=== PATIENT | male | born 1935 | race Caucasian/White ===

== ENCOUNTER → 2017-02-04 | Outpatient (CLI) | payer OTHER ==
[~2017-02-04] MED LIST: /ESOM40CA; ALPHAGAN; DIOV320T; SIMV10TA2; TRAM50TA2; TRIC145T19; XALATAN
--- NOTE | 2017-02-05 03:20 | REP ---
Clinical: Shoulder pain. Status post fall. Technique: Internal rotation, external rotation, and Y view of the right shoulder. Findings: Age-related osteopenia and moderate osteoarthritic degenerative changes at the acromioclavicular and glenohumeral joints are appreciated. Findings include spurring/osteophyte formation along the inferior margin of the AC joint and glenoid rim. No obvious acute fracture or dislocation. Subacromial space is normal. No periarticular calcifications appreciated. Impression: Age-related osteopenia and moderate osteoarthritic degenerative changes. No obvious acute fracture or dislocation. Signed by Cale Conley MD 02/05/2017 03:12 A
== END ==
LOC: M RAD 11:26
PROVIDERS: ATTEND Nurse Practitioner Family
DX: M81.0 Age-related osteoporosis without current pathological fracture (principal); M19.011 Primary osteoarthritis, right shoulder

== ENCOUNTER → 2018-10-28 | Outpatient (CLI) | payer MEDICARE ==
--- NOTE | 2018-10-28 20:52 | REP ---
Clinical: Left elbow pain. Technique: AP, lateral, bilateral oblique views of the left elbow. Findings: Extensive destructive changes involving the distal humerus, and proximal radius and ulna are appreciated with architectural distortion and heterotopic ossification. Findings may be related to old injury as well as prior infection. Calcifications likely extending into the joint space involve the synovium. 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 Electronically Signed by Cale Conley MD 10/28/2018 08:44 P
== END ==
LOC: M RAD 12:58
PROVIDERS: ATTEND Nurse Practitioner Adult Health
DX: M79.9 Soft tissue disorder, unspecified (principal)

== ENCOUNTER → 2019-05-05 | Outpatient (REF) | payer MEDICARE ==
[~2019-05-05] MED LIST changes: -/ESOM40CA; +NEXI1CAP3
== END ==
LOC: M LAB REF 12:11
PROVIDERS: ATTEND Nurse Practitioner Adult Health
DX: J02.9 Acute pharyngitis, unspecified (principal)

== ENCOUNTER → 2020-01-26 | Outpatient (CLI) | payer MEDICARE ==
--- NOTE | 2020-01-27 05:04 | REP ---
Clinical: Symptoms related to atherosclerotic disease and intermittent claudication along with edema. Technique: Real time mesa scale and color Doppler evaluation of the bilateral lower extremity arterial vasculature using linear high frequency transducer. Findings: Mesa scale and color images demonstrate moderate amounts of atheromatous plaquing bilaterally with scattered areas of narrowing. There is focal 3:1 stenosis of the right proximal anterior tibial artery. Doppler interrogation demonstrates bilateral triphasic and biphasic arterial wave forms. Peak systolic velocities (cm/sec) RIGHT LEFT Common femoral artery 85.0 76.0 Profunda femoris 80.0 57.0 SFA (proximal) 75.0 77.0 SFA (mid) 81.0 76.0 SFA (distal) 66.0 61.0 Popliteal artery 42.0 66.0 JULISA (prox.) 154.0 68.0 Tibioperoneal trunk 62.0 72.0 [employer] (prox.) 47.0 66.0 [employer] (distal) 69.0 36.0 JULISA (distal) 24.0 52.0 Impression: Diffuse moderate partially calcified atheromatous changes with areas of narrowing noted bilaterally including focal stenosis in the right proximal anterior tibial artery. Electronically Signed by Cale Conley MD 01/27/2020 04:56 A
== END ==
LOC: M RAD 06:40
PROVIDERS: ATTEND Physician Assistant
DX: M79.606 Pain in leg, unspecified (principal); R60.9 Edema, unspecified; I70.223 Atherosclerosis of native arteries of extremities with rest pain, bilateral legs

== ENCOUNTER → 2020-02-02 | Outpatient (CLI) | payer MEDICARE ==
--- NOTE | 2020-02-02 12:57 | REP ---
MRI lumbar spine: 02/02/2020. Indication: Low back pain. Technique: Multiplanar short and long TR sequences of the lumbar spine were obtained without IV Gadolinium. Comparison: 07/22/2005. Findings: Grade 1 anterolisthesis of L1 on L2 and L3 and L4 are present. There is reversal of the lumbar lordosis. Minimal retrolisthesis of L4 on L5 and L5 on S1 is noted. There is partial osseous fusion at L4/L5. Disc dessication is present throughout. There is considerable disc space narrowing throughout. L1/L2: Disc uncovering/bulge, osteophytic spurring most pronounced anteriorly, ligamental laxity and significant bilateral facet arthropathy are present with severe right greater than left recess narrowing. There is moderate bilateral neural foraminal narrowing. L2/L3: Disc osteophyte complex is present most pronounced anteriorly with significant bilateral facet arthropathy and ligamental laxity. Moderate to severe right and moderate left recess narrowing is present. Mild to moderate bilateral neural foraminal narrowing is present. L3/L4: Disc uncovering/bulge and disc and spur complex are present most pronounced anteriorly with significant bilateral facet arthropathy. Ligamental laxity is present as well. There is severe bilateral recess narrowing. Moderate bilateral neural foraminal narrowing is present. L4/L5: Disc osteophytes are present most pronounced anteriorly. There is significant facet arthropathy and ligamental laxity. Severe left greater than right recess narrowing is present. Moderate bilateral neural foraminal narrowing is present. L5/S1: Diffuse disc and spur complex, right greater than left facet arthropathy and ligamental laxity are present with moderate to severe right greater than left recess narrowing. Moderate to severe left and moderate right neural foraminal narrowing is present. Impression: Significant multilevel degenerative sequelae of the lumbar spine as described. Please correlate with radicular level. Electronically Signed by Marshal Coy DO 02/02/2020 12:47 P
== END ==
LOC: M RAD 08:23
PROVIDERS: ATTEND Physical Medicine & Rehabilitation
DX: M43.16 Spondylolisthesis, lumbar region (principal); M51.26 Other intervertebral disc displacement, lumbar region

== ENCOUNTER → 2020-05-02 | Outpatient (CLI) | payer MEDICARE | LOC: M LABSMTC 10:42 | PROVIDERS: ATTEND Physical Medicine & Rehabilitation | DX: Z11.59 Encounter for screening for other viral diseases (principal) ==

== ENCOUNTER → 2020-05-04 | Outpatient (REF) | payer MEDICARE ==
[2020-05-04 18:43] LABS: INR 1.15; PROTHROMBIN TIME 14.9 SECONDS (11.8-14.0)
[2020-05-04 18:44] LABS: PARTIAL THROMBOPLASTIN TIME 28.3 SECONDS (25.0-38.4)
== END ==
LOC: M LAB REF 16:57
PROVIDERS: ATTEND Nurse Practitioner Adult Health
DX: Z01.812 Encounter for preprocedural laboratory examination (principal)

== ENCOUNTER → 2020-05-13 | Outpatient (CLI) | payer MEDICARE | LOC: M LABSMTC 09:33 | PROVIDERS: ATTEND Physical Medicine & Rehabilitation | DX: Z20.828 Contact with and (suspected) exposure to other viral communicable diseases (principal) ==

== ENCOUNTER → 2021-02-22 | Outpatient (CLI) | payer MEDICARE ==
[2021-02-22 13:17] LABS: BLOOD UREA NITROGEN 21 MG/DL (7-18); CREATININE FOR GFR 0.69 MG/DL (0.70-1.30); GLOMERULAR FILTRATION RATE > 60.0 (>35)
== END ==
LOC: M LAB 12:22
PROVIDERS: ATTEND Orthopaedic Surgery
DX: M19.011 Primary osteoarthritis, right shoulder (principal)

== ENCOUNTER → 2021-03-01 | Outpatient (CLI) | payer MEDICARE ==
--- NOTE | 2021-03-01 16:48 | REP ---
INDICATION: OA RT SHOULDER, R/O LABRAL TEAR. COMPARISON: Radiographs 02/04/2017. TECHNIQUE: Coronal oblique T1, T2 fat sat, sagittal oblique T2 fat sat, axial T2 fat sat, gradient echo. T1 fat-sat imaging in multiple planes prior to and following the intravenous administration of 16 mL ProHance. FINDINGS: Rotator cuff: There is a full-thickness tear of the distal supraspinatus tendon, the gap in the tendon is 1.3 cm. There is a partial tear of the subscapularis tendon. Acromioclavicular joint: There are moderately severe hypertrophic degenerative changes of the acromioclavicular joint with mild fluid in the joint. Acromion: Type 1 Biceps Tendon: The proximal biceps tendon appears torn and retracted distally.. Hill Sach's deformity: None. Deltoid muscle: No abnormal signal. Biceps labral complex: The biceps tendon is not visualized inserting onto the labral anchor. Labrum: The inferior labrum is diffusely frayed and truncated. There tears of the anterior and posterior labrum. 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 Bone marrow: There is scattered marrow edema in the medial humeral head and in the glenoid. There is moderate spurring of the medial humeral head. Joint fluid: There is a large joint effusion. There is a large amount of fluid in the subdeltoid bursa. There is diffuse synovial thickening and enhancement. IMPRESSION: Full-thickness tear distal supraspinatus tendon. Partial tear subscapularis tendon. Moderately severe hypertrophic degenerative changes acromioclavicular joint. Proximal biceps tendon appears torn and retracted distally. There are tears of the anterior and posterior labrum. The inferior labrum is diffusely frayed and truncated. 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 Large joint effusion. Large amount of fluid in the subdeltoid bursa. Diffuse synovial thickening and enhancement. <Electronically signed by Eric Mesa > 03/01/21 1702
== END ==
LOC: M RAD 10:55
PROVIDERS: ATTEND Physician Assistant Surgical
DX: M19.011 Primary osteoarthritis, right shoulder (principal)

== ENCOUNTER 2021-08-21 20:20 | Emergency (ER) | payer MEDICARE ==
[~2021-08-21] VITALS: Ht 180.3 cm; Wt 81.8 kg
[2021-08-21 20:21] VITALS: BP 123/58
[2021-08-21] MEDS ORDERED: LISI20TA33 PO (20:29)
== END 2021-08-21 23:11 | disposition left against medical advice (07) ==
LOC: M ED 20:20
DX: Z53.29 Procedure and treatment not carried out because of patient's decision for other reasons (principal)

== ENCOUNTER → 2021-12-31 | Outpatient (CLI) | payer MEDICARE ==
[~2021-12-31] MED LIST changes: +LISI20TA33 PO
== END ==
LOC: M RAD 12:16
PROVIDERS: ATTEND Physician Assistant Medical
DX: R05.9 Cough, unspecified (principal)

== ENCOUNTER → 2022-07-21 | Outpatient (CLI) | payer MEDICARE ==
[~2022-07-21] MED LIST changes: +ECOT81TA5 PO; +SIMV20TA22 PO
== END ==
LOC: M LABSMTC 09:55
PROVIDERS: ATTEND Anesthesiology
DX: Z01.812 Encounter for preprocedural laboratory examination (principal); Z11.52 Encounter for screening for COVID-19

== ENCOUNTER → 2022-07-28 | Outpatient (CLI) | payer MEDICARE | LOC: M LABSMTC 10:23 | PROVIDERS: ATTEND Anesthesiology | DX: Z01.818 Encounter for other preprocedural examination (principal); Z11.52 Encounter for screening for COVID-19 ==

== ENCOUNTER 2022-07-31 08:15 | Day surgery (SDC) | payer MEDICARE ==
[~2022-07-31] VITALS: Ht 177.8 cm; Wt 78.5 kg
[~2022-07-31 08:15] MED LIST changes: +BSS IRRIG/VANCO(10MG)/TOBRA(5MG)/EPINEPH(1:1000-0.5CC)500ML BAG-ORONLY IR ONE; +CEFUROXIME 1MG/0.1ML INTRACAMERAL INJ As Ordered ONE; +CYCLOPENTOLATE 1% OPHTH SOLN 2ML BTL OD SCH; +LIDOCAINE 1% SDV 5ML VIAL As Ordered ONE; +LIDOCAINE 3.5 % 1ML OPHTH TOPICAL GEL OU ONE; +MIDAZOLAM INJ 2MG/2ML VIAL (J2250 PER 1MG) As Ordered ONE; +OFLOXACIN 0.3 % (OCUFLOX) OPTH SOL 5ML OD ONE; +PHENYLEPHRINE 10% OPHTH SOL 5ML OD PRN; +PHENYLEPHRINE 2.5% OPHTH SOL 2ML OD SCH; +TROPICAMIDE 1% OPHTH SOLN 15ML OD SCH; +fentaNYL 100 MCG/2 ML INJECTION As Ordered ONE
[2022-07-31] MEDS ORDERED: LABETALOL 100MG/20ML VIAL As Ordered ONE (10:01)
[2022-07-31 10:50] VITALS: BP 134/83
== END 2022-07-31 11:04 | disposition home or self-care (01) ==
LOC: M SDC 08:15
PROVIDERS: ATTEND Ophthalmology
DX: H25.11 Age-related nuclear cataract, right eye (principal); H40.9 Unspecified glaucoma; I10 Essential (primary) hypertension; E78.5 Hyperlipidemia, unspecified; Z90.49 Acquired absence of other specified parts of digestive tract; Z88.5 Allergy status to narcotic agent; Z79.899 Other long term (current) drug therapy
CPT/HCPCS: 66991; C1783; J0697; J2250; J3010; V2632

== ENCOUNTER → 2022-08-04 | Outpatient (CLI) | payer MEDICARE ==
[~2022-08-04] MED LIST changes: -BSS IRRIG/VANCO(10MG)/TOBRA(5MG)/EPINEPH(1:1000-0.5CC)500ML BAG-ORONLY IR ONE; -CEFUROXIME 1MG/0.1ML INTRACAMERAL INJ As Ordered ONE; -CYCLOPENTOLATE 1% OPHTH SOLN 2ML BTL OD SCH; -LIDOCAINE 1% SDV 5ML VIAL As Ordered ONE; -LIDOCAINE 3.5 % 1ML OPHTH TOPICAL GEL OU ONE; -MIDAZOLAM INJ 2MG/2ML VIAL (J2250 PER 1MG) As Ordered ONE; -OFLOXACIN 0.3 % (OCUFLOX) OPTH SOL 5ML OD ONE; -PHENYLEPHRINE 10% OPHTH SOL 5ML OD PRN; -PHENYLEPHRINE 2.5% OPHTH SOL 2ML OD SCH; -TROPICAMIDE 1% OPHTH SOLN 15ML OD SCH; -fentaNYL 100 MCG/2 ML INJECTION As Ordered ONE
== END ==
LOC: M LABSMTC 10:30
PROVIDERS: ATTEND Anesthesiology
DX: Z01.812 Encounter for preprocedural laboratory examination (principal); Z11.52 Encounter for screening for COVID-19

== ENCOUNTER 2022-08-06 09:16 | Day surgery (SDC) | payer MEDICARE ==
[~2022-08-06] VITALS: Ht 177.8 cm; Wt 71.2 kg
[~2022-08-06 09:16] MED LIST changes: +BSS IRRIG/VANCO(10MG)/TOBRA(5MG)/EPINEPH(1:1000-0.5CC)500ML BAG-ORONLY IR ONE; +CEFUROXIME 1MG/0.1ML INTRACAMERAL INJ As Ordered ONE; +CYCLOPENTOLATE 1% OPHTH SOLN 2ML BTL OS SCH; +LIDOCAINE 1% 1ML PF SYRINGE (OR EYE CASES) As Ordered ONE; +LIDOCAINE 3.5 % 1ML OPHTH TOPICAL GEL OU ONE; +OFLOXACIN 0.3 % (OCUFLOX) OPTH SOL 5ML OS ONE; +PHENYLEPHRINE 10% OPHTH SOL 5ML OS PRN; +PHENYLEPHRINE 2.5% OPHTH SOL 2ML OS SCH; +TROPICAMIDE 1% OPHTH SOLN 15ML OS SCH
[2022-08-06] MEDS ORDERED: POVIDONE-IODINE 5% OPHTH PREP SOL 30ML As Ordered ONE (09:32)
[2022-08-06] MEDS ORDERED: MIDAZOLAM INJ 2MG/2ML VIAL (J2250 PER 1MG) As Ordered ONE (11:20)
[2022-08-06] MEDS ORDERED: fentaNYL 100 MCG/2 ML INJECTION As Ordered ONE (11:20)
[2022-08-06] MEDS ORDERED: ONDANSETRON 4MG 2ML VIAL As Ordered ONE (11:25)
[2022-08-06 11:37] VITALS: BP 128/69
== END 2022-08-06 12:05 | disposition home or self-care (01) ==
LOC: M SDC 09:16
PROVIDERS: ATTEND Ophthalmology
DX: H25.11 Age-related nuclear cataract, right eye (principal); H40.9 Unspecified glaucoma; I10 Essential (primary) hypertension; E78.5 Hyperlipidemia, unspecified; Z90.89 Acquired absence of other organs; Z88.5 Allergy status to narcotic agent; Z79.899 Other long term (current) drug therapy
CPT/HCPCS: 66991; C1783; J0697; J2250; J2405; J3010; V2632

== ENCOUNTER → 2022-10-07 | Outpatient (CLI) | payer MEDICARE ==
[~2022-10-07] MED LIST changes: -BSS IRRIG/VANCO(10MG)/TOBRA(5MG)/EPINEPH(1:1000-0.5CC)500ML BAG-ORONLY IR ONE; -CEFUROXIME 1MG/0.1ML INTRACAMERAL INJ As Ordered ONE; -CYCLOPENTOLATE 1% OPHTH SOLN 2ML BTL OS SCH; -LIDOCAINE 1% 1ML PF SYRINGE (OR EYE CASES) As Ordered ONE; -LIDOCAINE 3.5 % 1ML OPHTH TOPICAL GEL OU ONE; -OFLOXACIN 0.3 % (OCUFLOX) OPTH SOL 5ML OS ONE; -PHENYLEPHRINE 10% OPHTH SOL 5ML OS PRN; -PHENYLEPHRINE 2.5% OPHTH SOL 2ML OS SCH; -TROPICAMIDE 1% OPHTH SOLN 15ML OS SCH
[2022-10-07 15:25] LABS: BASO % 0.7 % (0.0-1.0); EOS # 0.1 10^3/uL (0.0-0.5); EOS % 2.7 % (0.0-3.0); HEMOGLOBIN 16.5 g/dl (13.5-17.5); LYMPH % 21.1 % (24.0-44.0); MEAN CORPUSCULAR HEMOGLOBIN 29.5 pg (27.0-33.0); MEAN CORPUSCULAR HGB CONC 33.7 g/dl (32.0-36.5); MEAN CORPUSCULAR VOLUME 87.7 fl (80.0-96.0); MONO # 0.3 10^3/uL (0.0-0.8); MONO % 6.9 % (2.0-8.0); NEUTROPHILS # 3.1 10^3/uL (1.5-8.5); NEUTROPHILS % 68.2 % (36.0-66.0); PLATELET COUNT, AUTOMATED 138 10^3/uL (150-450); RED BLOOD COUNT 5.59 10^6/uL (4.30-6.10); WHITE BLOOD COUNT 4.5 10^3/uL (4.0-10.0)
[2022-10-07 15:44] LABS: ERYTHROCYTE SEDIMENTATION RATE 9 mm/hr (0-20)
== END ==
LOC: M PLALAB 13:00
PROVIDERS: ATTEND Physician Assistant Surgical
DX: M25.562 Pain in left knee (principal); Z96.652 Presence of left artificial knee joint

== ENCOUNTER → 2022-12-12 | Outpatient (CLI) | payer OTHER, MEDICARE | LOC: M RAD 10:10 | PROVIDERS: ATTEND Physician Assistant Surgical | DX: Z96.652 Presence of left artificial knee joint (principal); M25.562 Pain in left knee | CPT/HCPCS: 78315; A9503 ==

== ENCOUNTER → 2023-03-30 | Outpatient (CLI) | payer OTHER, MEDICARE | LOC: M WUC 15:40 | PROVIDERS: ATTEND Physician Assistant Medical | DX: R05.9 Cough, unspecified (principal) ==

== ENCOUNTER → 2023-07-08 | Outpatient (CLI) | payer MEDICARE | LOC: M PLAIMG 09:45 | PROVIDERS: ATTEND Internal Medicine Pulmonary Disease | DX: R06.02 Shortness of breath (principal) ==

== ENCOUNTER 2023-10-11 13:27 | Emergency (ER) | payer MEDICARE ==
[~2023-10-11] VITALS: Ht 170.2 cm; Wt 77.3 kg
[2023-10-11 15:01] LABS: BASO % 0.6 % (0.0-1.0); EOS # 0.1 10^3/uL (0.0-0.5); EOS % 2.3 % (0.0-3.0); HEMATOCRIT 50.4 % (42.0-52.0); HEMOGLOBIN 17.5 g/dl (13.5-17.5); LYMPH # 1.1 10^3/uL (1.5-5.0); LYMPH % 21.3 % (24.0-44.0); MEAN CORPUSCULAR HEMOGLOBIN 29.1 pg (27.0-33.0); MEAN CORPUSCULAR HGB CONC 34.7 g/dl (32.0-36.5); MEAN CORPUSCULAR VOLUME 83.9 fl (80.0-96.0); MONO # 0.4 10^3/uL (0.0-0.8); NEUTROPHILS # 3.5 10^3/uL (1.5-8.5); NEUTROPHILS % 68.4 % (36.0-66.0); PLATELET COUNT, AUTOMATED 162 10^3/uL (150-450); RED BLOOD COUNT 6.01 10^6/uL (4.30-6.10); WHITE BLOOD COUNT 5.2 10^3/uL (4.0-10.0)
[2023-10-11 15:20] LABS: CK-MB VALUE MASS 1.3 NG/ML (<3.6)
[2023-10-11 15:22] LABS: ALBUMIN 3.5 G/DL (3.2-5.2); ALKALINE PHOSPHATASE 109 U/L (46-116); ALT/SGPT 20 U/L (7.0-40); AST/SGOT 13 U/L (<34); BILIRUBIN,DIRECT 0.8 MG/DL (<0.4); BILIRUBIN,TOTAL 2.3 MG/DL (0.3-1.2); BLOOD UREA NITROGEN 22 MG/DL (9-23); CALCIUM LEVEL 8.9 MG/DL (8.3-10.6); CARBON DIOXIDE LEVEL 28 MMOL/L (20-31); CHLORIDE LEVEL 109 MMOL/L (98-107); CPK CREATINE PHOSPHOKINASE 33 U/L (46-171); CREATININE FOR GFR 0.65 MG/DL (0.70-1.30); GLOMERULAR FILTRATION RATE > 60.0 (>35); GLUCOSE, FASTING 141 MG/DL (74-106); MB/CK RELATIVE INDEX 3.93 (< OR =4); POTASSIUM SERUM 3.8 MMOL/L (3.5-5.1); SODIUM LEVEL 141 MMOL/L (136-145); TOTAL PROTEIN 6.5 G/DL (5.7-8.2)
[2023-10-11 15:24] LABS: THYROXINE (T4) 9.4 UG/DL (4.5-10.9)
[2023-10-11 15:25] LABS: THYROID STIMULATING HORMONE 0.708 uIU/ML (0.55-4.78)
[2023-10-11 15:28] LABS: PROCALCITONIN 0.04 ng/ml
[2023-10-11] MEDS ORDERED: ISOVUE-370 76% 100ML VIAL As Ordered ONE (15:41)
[2023-10-11 16:37] LABS: CK-MB VALUE MASS < 1.0 NG/ML (<3.6)
[2023-10-11 16:40] LABS: CPK CREATINE PHOSPHOKINASE 34 U/L (46-171); MB/CK RELATIVE INDEX 2.94 (< OR =4)
[2023-10-11 17:15] VITALS: O2SAT 95
[2023-10-11 17:45] VITALS: BP 130/72; TEMP 98.1
[2023-10-11] MEDS: guaiFENesin ER TABLET 600 MG TAB PO STA (17:48)
[2023-10-11] MEDS ORDERED: MUCI600T31 PO (17:56)
== END 2023-10-11 17:48 | disposition home or self-care (01) ==
LOC: M ED 13:27
DX: R09.89 Other specified symptoms and signs involving the circulatory and respiratory systems (principal); I25.2 Old myocardial infarction; I45.10 Unspecified right bundle-branch block; I10 Essential (primary) hypertension; E78.5 Hyperlipidemia, unspecified; Z88.8 Allergy status to other drugs, medicaments and biological substances; Z79.1 Long term (current) use of non-steroidal anti-inflammatories (NSAID); Z79.899 Other long term (current) drug therapy
CPT/HCPCS: 36415; 71045; 74177; 80048; 80076; 82550; 82553; 83605; 83880; 84145; 84436; 84443; 84484; 85025; 87040; 87486; 87581; 87633; 87798; 93005; 93041; 94760; 99285; Q9967

== ENCOUNTER → 2023-11-11 | Outpatient (CLI) | payer MEDICARE ==
[~2023-11-11] MED LIST changes: +ISOVUE-300 61% 100ML VIAL As Ordered ONE; +LIDOCAINE 1% MDV 20ML VIAL As Ordered ONE; +MUCI600T31 PO; +methylPREDNISolone SUSP 40MG/ML 1ML VIAL (DEPO MEDROL) As Ordered ONE
== END ==
LOC: M RAD 13:50
PROVIDERS: ATTEND Physician Assistant Surgical
DX: M19.011 Primary osteoarthritis, right shoulder (principal); M19.012 Primary osteoarthritis, left shoulder
CPT/HCPCS: 20610; 77002; J1030; Q9967